=== PATIENT | female | born 1955 | race Caucasian/White ===

== ENCOUNTER 2019-05-05 09:20 | Day surgery (SDC) | payer OTHER, MEDICARE ==
[~2019-05-05] VITALS: Ht 154.9 cm; Wt 49.0 kg
[~2019-05-05 09:20] MED LIST: CEFAZOLIN SOD 2 GM in D5W 50 ML IV ONE
[2019-05-05] MEDS ORDERED: MIDAZOLAM HCL 5 MG/5 ML VIAL IVP ONE (11:00)
[2019-05-05] MEDS ORDERED: ROCURONIUM BROMIDE 10 MG/ML (ZEMURON) IV ONE (11:00)
[2019-05-05] MEDS ORDERED: NS IRRIG SOLN 1000 ML IR ONE (11:00)
[2019-05-05] MEDS ORDERED: ONDANSETRON HCL 4 MG/2 ML VIAL IVP ONE (11:00)
[2019-05-05] MEDS ORDERED: SEVOFLURANE 15 MIN GAS INH ONE (11:00)
[2019-05-05] MEDS ORDERED: LR 1,000 ML IV.SOLN IV ONE (11:00)
[2019-05-05] MEDS ORDERED: PROPOFOL 200MG/ 20ML VIAL (DIPRIVAN) IV ONE (11:00)
[2019-05-05] MEDS ORDERED: fentaNYL CITRATE 250 MCG/5 ML AMP IV ONE (11:00)
[2019-05-05] MEDS ORDERED: BUPIVACAINE /EPINEPHRINE/PF 0.5% 30 ML VIAL INJ ONE (11:00)
[2019-05-05] MEDS ORDERED: LR 1,000 ML IV SCH (11:33)
[2019-05-05] MEDS ORDERED: METOCLOPRAMIDE HCL 10 MG/2 ML VIAL IVP PRN (11:45)
[2019-05-05] MEDS ORDERED: MORPHINE 4 MG/ML INJ. SYRINGE IVP PRN ×3 (11:45)
[2019-05-05] MEDS ORDERED: HYDROcodone/ACETAMIN 5-325 MG TAB (NORCO/ VICODIN) PO PRN ×2 (13:30)
[2019-05-05] MEDS ORDERED: DOCUSATE SODIUM 100 MG CAPSULE PO ONE (13:30)
[2019-05-05 14:53] VITALS: BP_SYST 133
[2019-05-05] MEDS ORDERED: DOCUSATE SODIUM 100 MG CAPSULE PO SCH (21:00)
== END 2019-05-05 16:05 | disposition home or self-care (01) ==
LOC: SDS 09:20 → SMU 09:37 → SDS 16:05
PROVIDERS: ATTEND Surgery
DX: K40.90 Unilateral inguinal hernia, without obstruction or gangrene, not specified as recurrent (principal); K41.90 Unilateral femoral hernia, without obstruction or gangrene, not specified as recurrent
CPT/HCPCS: 49650; C1727; C1781; J0690; J2250; J2405; J2704; J3010; J3490; J7060; J7120